=== PATIENT | male | born 1930 | race Caucasian/White ===

== ENCOUNTER 2018-06-17 12:47 | Emergency (ER) | payer MEDICAID, MEDICARE ==
[~2018-06-17] VITALS: Ht 185.4 cm; Wt 100.0 kg
[2018-06-17] MEDS ORDERED: LORazepam 2 MG/ML VIAL IVP ONE (13:45)
[2018-06-17] MEDS ORDERED: LevETIRAcetam 1,000 MG in DEXTROSE 5%-WATER 100 ML IV ONE (13:45)
[2018-06-17 14:22] LABS: BASOPHILS % (AUTO) 0.4 % (0.0-2.0); EOSINOPHILS % (AUTO) 0.4 % (1.0-6.0); HEMATOCRIT 31.1 % (41-53); HEMOGLOBIN 9.9 g/dL (13.5-17.5); LYMPHOCYTES # (AUTO) 0.8 K/uL (1.0-4.8); LYMPHOCYTES % (AUTO) 10.2 % (22.0-44.0); MEAN CORPUSCULAR HEMOGLOBIN 25.2 pg (26.0-34.0); MEAN CORPUSCULAR HGB CONC 31.9 G/dL (31.0-37.0); MEAN CORPUSCULAR VOLUME 79 fL (80-100); MONOCYTES # (AUTO) 0.5 K/uL (0.1-1.0); MONOCYTES % (AUTO) 7.3 % (2.0-9.0); NEUTROPHILS # (AUTO) 6.1 K/uL (1.8-7.7); NEUTROPHILS % (AUTO) 81.7 % (40.0-70.0); PLATELET COUNT (AUTO) 195 K/uL (150-450); RED BLOOD CELL COUNT(AUTO) 3.93 MIL/uL (4.50-5.90); RED CELL DISTRIBUTION WIDTH 14.5 % (11.5-14.5)
[2018-06-17 14:23] LABS: CALCIUM, TOTAL 8.5 mg/dL (8.8-10.5); CREATININE 1.94 mg/dL (0.60-1.30); POTASSIUM 4.5 mmol/L (3.5-5.1)
[2018-06-17 14:29] LABS: ALBUMIN 3.5 g/dL (3.4-5.0); BILIRUBIN,TOTAL 0.1 mg/dL (0.1-1.0); TOTAL PROTEIN, SERUM 7.1 g/dL (6.4-8.2)
[2018-06-17] MEDS ORDERED: OXYC-38 PO (14:41)
[2018-06-17] MEDS ORDERED: GABA-533 PO (14:41)
[2018-06-17] MEDS ORDERED: TRAZ-219 PO (14:41)
[2018-06-17] MEDS ORDERED: SERT50TA12 PO (14:41)
[2018-06-17] MEDS ORDERED: SENN8.6T20 PO (14:41)
[2018-06-17] MEDS ORDERED: ASPI81 PO (14:41)
[2018-06-17] MEDS ORDERED: CLOP75TA3 PO (14:41)
[2018-06-17] MEDS ORDERED: LEVE250T55 PO (14:41)
[2018-06-17] MEDS ORDERED: TAMS-1 PO (14:41)
[2018-06-17] MEDS ORDERED: LIDO700A15 TD (14:41)
[2018-06-17] MEDS ORDERED: ATOR10TA84 PO (14:41)
[2018-06-17] MEDS ORDERED: DOCU250C91 PO (14:41)
[2018-06-17] MEDS ORDERED: DONE5TAB5 PO (14:41)
[2018-06-17 18:00] VITALS: BP 109/59
== END 2018-06-17 18:16 | disposition home or self-care (01) ==
LOC: EMS 12:47
DX: G40.909 Epilepsy, unspecified, not intractable, without status epilepticus (principal); M79.10 Myalgia, unspecified site; Z88.5 Allergy status to narcotic agent; Z88.8 Allergy status to other drugs, medicaments and biological substances; Z88.6 Allergy status to analgesic agent; Z91.012 Allergy to eggs
CPT/HCPCS: 36415; 70450; 71045; 80053; 83880; 84484; 85025; 96365; 96375; 99284; G0482; J0712; J2060; J7060